=== PATIENT | male | born 1930 | race Caucasian/White ===

== ENCOUNTER 2017-03-11 13:45 | Outpatient (CLI) | payer MEDICARE, BC ==
--- NOTE | 2017-03-11 14:44 | RAD ---
CHEST PA AND LATERAL TWO VIEWS: History: 86-year-old male with history of cough and congestion for five days. Comparison: 04-08-16 FINDINGS: Left ICD. Heart size is within normal limits. The lungs are clear. IMPRESSION: No acute intrathoracic disease. Left ICD. No evidence for pneumonia. Atherosclerosis of the aorta. St able from prior study. POS: [facility]
== END 2017-03-11 13:46 | disposition home or self-care (01) ==
LOC: SCSRAD 13:45
PROVIDERS: ATTEND Family Medicine
DX: R68.89 Other general symptoms and signs (principal); I70.0 Atherosclerosis of aorta
CPT/HCPCS: 71046

== ENCOUNTER 2018-04-11 22:06 | Observation (INO) | payer MEDICARE, BC ==
[2018-04-11 22:41] LABS: #Eosinphils 0.6 thou/uL (0.0-0.7); #Lymphocytes 2.5 thou/uL (1.20-3.40); #Monocytes 0.7 thou/uL (0.11-0.59); #Neutrophils 5.1 thou/uL (1.40-6.50); %Basophils 0.5 % (0.0-1.0); %Eosinophils 6.3 % (0.0-10.0); %Lymphocytes 28.2 % (21.0-51.0); %Monocytes 7.6 % (0.0-10.0); %Neutrophils 57.4 % (42.0-75.0); Hemoglobin 14.8 g/dL (14.0-18.0); Mean Corpuscular HGB CONC 32.7 g/dL (32.0-36.0); Mean Corpuscular Hemoglobin 29.5 pg (27.0-31.0); Mean Corpuscular Volume 90.3 fL (78.0-98.0); Mean Platelet Volume 11.5 fL (7.4-10.4); Platelet Count 179 thou/uL (130-400); Red Blood Cell (RBC) Count 5.01 mill/uL (4.70-6.10); White Blood Cell (WBC) Count 8.8 thou/uL (4.8-10.8)
[2018-04-11 22:50] LABS: ALT (SGPT) 9 U/L (8-55); AST (SGOT) 18 U/L (5-34); Albumin 4.4 g/dL (3.4-4.8); Alkaline Phosphatase 94 U/L (40-150); Anion Gap 15 mmol/L (10-20); BUN (Urea Nitrogen) 22 mg/dL (8.4-25.7); Bilirubin, Total 0.5 mg/dL (0.2-1.2); CK (CPK) 57 U/L (30-200); Calc. Creatinine Clearance 0 mL/min (70-130); Calcium 10.7 mg/dL (7.8-10.44); Carbon Dioxide 31 mmol/L (23-31); Chloride 100 mmol/L (98-107); Estimated GFR-MDRD 55; Globulin 2.9 g/dL (2.4-3.5); Glucose 96 mg/dL (83-110); Potassium 4.6 mmol/L (3.5-5.1); Protein, Total 7.3 g/dL (5.8-8.1); Sodium 141 mmol/L (136-145)
[2018-04-11] MEDS ORDERED: Aspirin Chewable 81 MG TAB ONE (22:54)
--- NOTE | 2018-04-11 22:55 | CT ---
CT BRAIN WITHOUT CONTRAST: 04/11/18 HISTORY: Syncope. COMPARISON: CT brain 04/09/16. FINDINGS: No acute hemorrhage or infarct. No midline shift or mass effect. Ventricular size and extra-axial CSF spaces are normal for age. The paranasal sinuses and mastoids are clear. IMPRESSION: No acute intracranial abnormality. POS: [facility]
--- NOTE | 2018-04-11 22:56 | RAD ---
CHEST ONE VIEW 04/11/17 HISTORY: Chest pain. COMPARISON: Radiograph 12/28/16. FINDINGS: Lungs are clear. No pneumothorax or effusion. Dual lead pacer is present. Cardiac silhouette and med iastinal contours are similar. IMPRESSION: No acute intrathoracic abnormality. POS: [facility]
[2018-04-12 00:52] VITALS: BMI 28.8
[2018-04-12] MEDS ORDERED: Acetaminophen 325 MG TAB PO PRN (01:11)
[2018-04-12] MEDS ORDERED: Ondansetron ODT 4 MG TAB PO PRN (01:11)
[2018-04-12] MEDS ORDERED: Bisacodyl 5 MG TAB PO PRN (01:11)
[2018-04-12] MEDS ORDERED: hydrALAZINE 20 MG/ML VIAL SLOW IVP PRN (01:13)
[2018-04-12] MEDS ORDERED: Sodium Chloride 0.9% 1,000 ML IV SCH (01:15)
[2018-04-12 02:16] LABS: Troponin I Less than 0.010 ng/mL (< 0.028)
--- NOTE | 2018-04-12 02:28 | HP ---
HISTORY OF PRESENT ILLNESS: Mr. Joel Marrufo is an 87-year-old male with past medical history of hypertension, hyperlipidemia, pacemaker due to bradycardia, early dementia, BPH, who presents to the emergency department for syncope episodes. The patient reports his episode started since yesterday. Denies any fall or hitting the head at this point. The patient reports that he has palpitations since age 17. The patient denies any chest pain at this point. At [place], the patient did report chest pain that resolved. The patient is unable to tell his medications. Reports that he has dementia, but he takes lot of medications. The patient is not sure when he saw his heel curver. He is not sure if his pacemaker was ever evaluated recently. The patient denies any other complaints at this point right now. At the outside ER, the patient's troponin was negative. CT head was negative. His vitals were also stable as well. PAST MEDICAL HISTORY: Hypertension, hyperlipidemia, dementia, gout, pacemaker, and BPH. PAST SURGICAL HISTORY: Tonsillectomy, pacemaker placement. SOCIAL HISTORY: Denies alcohol or illicit drug use. Ex-smoker over 40 years ago. . FAMILY HISTORY: The patient is unable to tell his family history to me. HOME MEDICATIONS: Appears to be patient on: 1. Cardizem. 2. Buspirone. 3. Aspirin. 4. Atenolol. 5. Clonazepam. ALLERGIES: NO KNOWN DRUG ALLERGIES. REVIEW OF SYSTEMS: CONSTITUTIONAL: Denies any ERICKSON. Denies any rashes. EYES: No visual changes. MOUTH: No ulcer is concerned. NECK: No swelling. CARDIOVASCULAR: Chest pain and palpitation. RESPIRATION: Shortness of breath, the patient reports that is chronic. ABDOMEN: Abdominal pain. No nausea, vomiting, or diarrhea. GENITOURINARY: Denies dysuria. MUSCULOSKELETAL: Denies any edema. NEUROLOGICAL: Syncope, otherwise no other complaints. PSYCHIATRIC: Denies any problem with his mood. PHYSICAL EXAMINATION: VITAL SIGNS: Blood pressure 154/72, temperature 98, pulse 69, O2 saturation 98 % on room air. GENERAL: The patient is alert and oriented x2 . HEENT: Eyes, extraocular movement intact. Ears, no gross abnormality noted. Nose, no gross abnormality noted. Mouth, no exudate or infection noted. NECK: No JVD. No lymphadenopathy. CARDIOVASCULAR: The patient has a pacemaker. Regular rate and rhythm. No murmur, rubs, or gallops. RESPIRATION: Lungs clear bilaterally. ABDOMEN: Soft. Bowel sounds positive. Nontender. EXTREMITIES: No edema noted. NEUROLOGICAL: Cranial nerve 2 through 12 grossly intact. Strength and sensation equal bilaterally. SKIN: No rashes noted. CT head from outside hospital noted to be negative. EKG per report from outside hospital. No ST-segment elevation noted. LABORATORY DATA: Labs reviewed. CBC and CMP negative for any significant abnormalities. The patient's creatinine is 1.25. Troponin is 0.012. ASSESSMENT AND PLAN: 1. Syncope, unclear etiology, but suspect possibly due to cardiovascular versus neurological at this point. We will admit for observation. Ultrasound, carotid and echocardiogram ordered. Unclear when patient's pacemaker was evaluated. We will place a consult for heel curver to see the patient in the morning. Fall precautions. PT and OT to evaluate the patient in the morning. 2. Chest pain, resolved. Admit for ACS protocol. First troponin negative. Continue to trend troponins. The patient is on tele. 3. Hypertension. We will restart home medication once verified. We will have hydralazine p.r.n. at this point. 4. Dementia. Continue to monitor clinically at this point. 5. Deep venous thrombosis prophylaxis addressed. The patient is a full code. 6. Medical power of patent prosecution attorney. The patient reported that his can make decision for him if he is not able to. Job ID: [id number] [facility]
[2018-04-12 05:06] LABS: #Basophils 0.1 thou/uL (0.0-0.2); #Eosinphils 0.5 thou/uL (0.0-0.7); #Lymphocytes 2.2 thou/uL (1.20-3.40); #Monocytes 0.6 thou/uL (0.11-0.59); #Neutrophils 3.7 thou/uL (1.40-6.50); %Basophils 1.3 % (0.0-1.0); %Eosinophils 7.4 % (0.0-10.0); %Lymphocytes 30.6 % (21.0-51.0); %Monocytes 8.1 % (0.0-10.0); %Neutrophils 52.7 % (42.0-75.0); Hemoglobin 13.4 g/dL (14.0-18.0); Mean Corpuscular HGB CONC 32.5 g/dL (32.0-36.0); Mean Corpuscular Hemoglobin 30.3 pg (27.0-31.0); Mean Corpuscular Volume 93.2 fL (78.0-98.0); Mean Platelet Volume 9.8 fL (7.4-10.4); Platelet Count 153 thou/uL (130-400); RBC Distribution Width 12.5 % (11.5-14.5); Red Blood Cell (RBC) Count 4.41 mill/uL (4.70-6.10)
[2018-04-12 05:23] LABS: Anion Gap 12 mmol/L (10-20); BUN (Urea Nitrogen) 23 mg/dL (8.4-25.7); Calc. Creatinine Clearance 67 mL/min (70-130); Carbon Dioxide 27 mmol/L (23-31); Cardiac Risk 3.1 (Less than 4.5); Chloride 103 mmol/L (98-107); Cholesterol 162 mg/dl (< 200 Desired); Estimated GFR-MDRD 65; Glucose 98 mg/dL (83-110); HDL Cholesterol 53 mg/dL (>60 Neg Risk); LDL Cholesterol, Calculated 76 mg/dL; Potassium 4.2 mmol/L (3.5-5.1); Sodium 138 mmol/L (136-145); Triglycerides 163 mg/dL (Less than 150)
[2018-04-12 05:27] LABS: Troponin I 0.016 ng/mL (< 0.028)
[2018-04-12] MEDS ORDERED: hydrOXYzine 25 MG TAB PO PRN (07:28)
[2018-04-12] MEDS: PARoxetine 20 MG TAB PO SCH ×2 (08:40→21:13)
[2018-04-12] MEDS: Aspirin Chewable 81 MG TAB PO SCH (08:40)
[2018-04-12] MEDS: busPIRone HCl 10 MG TAB PO SCH ×2 (08:40→21:12)
[2018-04-12] MEDS: Heparin 5,000 UNITS/ML VIAL SC SCH ×3 (08:41→21:13)
[2018-04-12] MEDS ORDERED: PAROXETINE HCL 20 MG PO SCH (09:00)
--- NOTE | 2018-04-12 09:28 | ULT ---
CAROTID DUPLEX SONOGRAM: HISTORY: Syncope. Vascular disease. FINDINGS: RIGHT: No significant plaque visible. Color and spectral Doppler evaluation, peak systolic velocity of 47 c m/s, and IC to CC ratio of 0.6 suggests no hemodynamically significant stenosis within the extracrani al right ICA. Right vertebral artery not well visualized. LEFT: No significant plaque visible. Color and spectral Doppler evaluation, peak systolic velocity of 48 c m/s, and IC to CC ratio 0.5 suggests no hemodynamically significant stenosis within the extracranial left ICA. Antegrade flow within the vertebral artery. IMPRESSION: No significant plaque visible. No sonographic evidence of significant extracranial internal carotid artery stenosis. POS: [facility]
--- NOTE | 2018-04-12 18:07 | PDOC.PN ---
- Subjective Encounter Start Date: 04/12/18 Encounter Start Time: 18:04 Patient sitting up in bed, no complaints. He reports palpitations and shortness of breath with activity. He denies chest pain. - Objective Resuscitation Status - Order Detail: 04/12/18 01:08 Resuscitation Status Routine Resuscitation Status: FULL: Full Resuscitation MAR Reviewed: Yes Vital Signs & Weight: Vital Signs (12 hours) Temp Pulse Pulse Pulse Pulse Pulse Resp 04/12/18 15:40 98.3 F 60 12 04/12/18 11:21 97.4 F L 94 16 04/12/18 10:55 66 68 70 94 04/12/18 07:17 98.6 F 66 15 04/12/18 06:07 BP BP BP BP BP BP BP 04/12/18 15:40 132/61 04/12/18 11:21 04/12/18 10:55 137/62 137/68 112/55 L 137/75 04/12/18 07:17 160/80 H 130/61 04/12/18 06:07 BP Pulse Ox 04/12/18 15:40 95 04/12/18 11:21 137/75 97 04/12/18 10:55 04/12/18 07:17 141/68 H 92 L 04/12/18 06:07 97 Weight Weight 212 lb 3.2 oz I&O: 04/11/18 04/12/18 04/13/18 06:59 06:59 06:59 Intake Total 201 755 Output Total 250 375 Balance -49 380 Result Diagrams: 04/12/18 04:33 04/12/18 04:33 Radiology Reviewed by me: Yes Phys Exam - Physical Examination Constitutional: NAD HEENT: PERRLA, moist MMs, oral pharynx no lesions Neck: no nodes, full ROM Respiratory: no wheezing, clear to auscultation bilateral Cardiovascular: RRR, no significant murmur Gastrointestinal: soft, non-tender, positive bowel sounds Musculoskeletal: no edema, pulses present Neurological: non-focal, moves all 4 limbs Lymphatic: no nodes Psychiatric: normal affect, A&O x 3 Skin: no rash, cap refill <2 seconds Dx/Plan (1) Syncope Code(s): R55 - SYNCOPE AND COLLAPSE Status: Acute (2) Hypertension Code(s): I10 - ESSENTIAL (PRIMARY) HYPERTENSION Status: Acute (3) Pacemaker Code(s): Z95.0 - PRESENCE OF CARDIAC PACEMAKER Status: Acute (4) Dementia Code(s): F03.90 - UNSPECIFIED DEMENTIA WITHOUT BEHAVIORAL DISTURBANCE Status: Acute - Plan cont current plan of care, DVT proph w/heparin * Continue medical management * CT and carotids unremarkable * Await echo and pacemaker interrogation * Orthostatics + this morning, improving * Await cardiology evaluation
[2018-04-12] MEDS ORDERED: Pravastatin Sodium 40 MG TAB PO SCH (21:00)
[2018-04-12] MEDS ORDERED: Atenolol 50 MG TAB PO SCH (21:00)
[2018-04-12] MEDS ORDERED: Simvastatin 5 MG TAB PO SCH (21:00)
--- NOTE | 2018-04-12 21:12 | CON ---
DATE OF CONSULTATION: 04/12/2018 HISTORY OF PRESENT ILLNESS: Joel Marrufo is an 87-year-old white male, patient of Dr. Donnelly for many years. In June 1994, he underwent cardiac catheterization and was found to have 5%-10% plaquing in the mid LAD. In March 2006, he underwent placement of a pacemaker by Dr. Hernandez. This apparently was replaced again within the past year or so. In April 2016, he was admitted with presyncope with no specific etiology being found. He now has another episode, where he got up in the middle of the night to go to the bathroom. He states that he felt very weak and lightheaded and fell to the floor. He remembers falling. He remembers hitting the floor and it does not sound as if he had true syncope. He states he crawled back to the bed. He denies any vertiginous symptoms during this time. PAST MEDICAL HISTORY: Hypertension, hyperlipidemia, gout, dementia, bradycardia, and BPH. OPERATIONS: Tonsillectomy, pacemaker placement, and prostate cancer surgery. SOCIAL HISTORY: He stopped smoking over 40 years ago. He does not drink. MEDICATIONS: 1. Aspirin 81 daily. 2. Atenolol 50 mg at bedtime. 3. Buspar 5 mg b.i.d. 4. Flonase nasal spray. 5. Atarax 25 mg t.i.d. p.r.n. 6. Claritin 10 mg daily. 7. Nystatin topical. 8. Protonix 20 daily. 9. Paxil 20 mg b.i.d. 10. Pravachol 20 mg at bedtime. ALLERGIES: SULFA. REVIEW OF SYSTEMS: A 10-point review of systems is unremarkable. Specifically, he denies any chest pain PHYSICAL EXAMINATION: VITAL SIGNS: Blood pressure 133/62, pulse of 60. On standing supine blood pressure, he has anywhere from 11 to 16 mm drop in blood pressure with standing from supine position. HEENT: PERRL. NECK: Supple. CHEST: Clear. CARDIAC: S1 and S2 normal without any S3, S4, or murmurs. ABDOMEN: Normal bowel sounds without tenderness. EXTREMITIES: Revealed no clubbing, cyanosis, or edema. NEUROLOGICAL: Grossly intact. SKIN: Warm and dry. LABORATORY DATA: EKG reveals atrial pacing with very long CO interval of 0.4 seconds. There were no arrhythmias since he has been monitored. Also, his pacemaker was interrogated and he did not have any significant arrhythmias. Pacing threshold for the atrial lead 0.625 and for the ventricular lead 0.875. Brain CT revealed no acute abnormality. Carotid Doppler did not reveal any hemodynamically significant lesions. Hemoglobin 13.4, hematocrit 41.1, white count 7000, platelets 153,000. Sodium 138, potassium 4.2, chloride 103, carbon dioxide 27, BUN 23, creatinine 1.08. Cholesterol 162, triglycerides 163, HDL 53, LDL 76. Cardiac enzymes x4 are normal. IMPRESSION: 1. Presyncopal episode. He was conscious when he hit the ground and I doubt this represents true syncopal spell. 2. Normal pacemaker function with good lead thresholds. 3. Similar episode in April 2016. 4. Hypertension. 5. Hypercholesterolemia. 6. Former smoker. PLAN: Mr. Marrufo's episodes sound more orthostatic in nature, although he did not have significant orthostatic tilt since he has been here. Certainly, he has normal pacemaker function, normal thresholds. From a cardiac standpoint, no further evaluation is warranted except for his echo that is pending. Job ID: [id number]
[2018-04-13] MEDS: busPIRone HCl 10 MG TAB PO SCH (08:20)
[2018-04-13] MEDS: Aspirin Chewable 81 MG TAB PO SCH (08:20)
[2018-04-13] MEDS: Heparin 5,000 UNITS/ML VIAL SC SCH (08:21)
[2018-04-13] MEDS: PARoxetine 20 MG TAB PO SCH (08:21)
[2018-04-13 11:34] VITALS: BP 156/75; TEMP 97.6
== END 2018-04-13 11:34 | disposition home or self-care (01) ==
LOC: SCSER 22:06 → 2SW 04-12 00:13
PROVIDERS: ADMIT Family Medicine; ATTEND Family Medicine
DX: R55 Syncope and collapse (principal); F03.90 Unspecified dementia, unspecified severity, without behavioral disturbance, psychotic disturbance, mood disturbance, and anxiety; N40.0 Benign prostatic hyperplasia without lower urinary tract symptoms; M10.9 Gout, unspecified; R07.9 Chest pain, unspecified; I10 Essential (primary) hypertension; E78.5 Hyperlipidemia, unspecified; E78.00 Pure hypercholesterolemia, unspecified; Z87.891 Personal history of nicotine dependence; Z79.82 Long term (current) use of aspirin; Z79.899 Other long term (current) drug therapy; Z88.2 Allergy status to sulfonamides; Z95.0 Presence of cardiac pacemaker
CPT/HCPCS: 70450; 71045; 80048; 80053; 80061; 82550; 84484 ×3; 85025 ×2; 93005; 93306; 93880; 94760 ×2; 97116; 97139 ×2; 99285; G0378 ×2; 36415; J1644